=== PATIENT | female | born 1980 | race Caucasian/White ===

== ENCOUNTER 2019-05-19 17:08 | Emergency (ER) | payer OTHER ==
[~2019-05-19] VITALS: Ht 147.3 cm; Wt 122.5 kg
[~2019-05-19 17:08] MED LIST: ADVAIR 100-501 EACH; ADVAIR 250-501 EACH IH; AZITHROMYCIN 2250 MG PO; BACTRIM DS TAB1 EACH PO; CARAFATE 1 GM TA1 G1 PO; CIPROFLOXACIN500 M1 PO; ELAVIL PO; FIORICET; FLONASE 0.05%50 MCG NS; FLONASE16 GM NS; METFORMIN 500500 MG PO; MULTIVITAMIN; NORCO 5-325 TA1 EACH PO; PREDNISONE50 MG PO; PRISTIQ100 MG PO; PROZAC40 MG; SEROQUEL XR150 MG; SINGULAIR 10 MG10 M1; SINGULAIR 10 MG10 M1 PO; TENUATE; TOPAMAX50 MG PO; VICODIN ES TAB1 EACH PO; VITAMIN B-12500 MCG; VITAMIN D; VITAMIN D1000 UNI1 PO; XOPENEX HFA15 GM IH; ZANTAC OTC; ZOFRAN4 MG PO; ZPAK PO; ZYRTEC 10 MG TA10 MG PO
[2019-05-19] MEDS ORDERED: PROBIOTIC1 EAC1 PO (17:24)
[2019-05-19 17:32] LABS: URINE BILIRUBIN NEGATIVE (Negative); URINE BLOOD TRACE (Negative); URINE CLARITY CLEAR; URINE COLOR YELLOW; URINE GLUCOSE-RANDOM NEGATIVE (Negative); URINE KETONES NEGATIVE (Negative); URINE LEUKOCYTES-REFLEX NEGATIVE (Negative); URINE NITRITE-REFLEX NEGATIVE (Negative); URINE PROTEIN NEGATIVE (Negative); URINE UROBILINOGEN 0.2 E.U./dl (0.2-1.0)
[2019-05-19] MEDS ORDERED: DIFLUCAN150 MG PO (18:39)
[2019-05-19 19:06] VITALS: BP 138/88
== END 2019-05-19 19:08 | disposition home or self-care (01) ==
LOC: M.ERS 17:08
PROVIDERS: Nurse Practitioner Family
DX: N76.0 Acute vaginitis (principal); G47.33 Obstructive sleep apnea (adult) (pediatric); J45.909 Unspecified asthma, uncomplicated; Z88.1 Allergy status to other antibiotic agents; Z88.0 Allergy status to penicillin; Z91.018 Allergy to other foods; Z98.890 Other specified postprocedural states